=== PATIENT | female | born 1985 | race Caucasian/White ===

== ENCOUNTER 2017-06-30 20:41 | Emergency (ER) | payer SELFPAY ==
[~2017-06-30] VITALS: Ht 167.6 cm; Wt 96.0 kg
[2017-06-30 20:46] VITALS: Ht 167.6 cm; Wt 96.0 kg
[2017-06-30] MEDS ORDERED: ARIP10TA13 PO (21:57)
[2017-06-30] MEDS ORDERED: BUSP10TA2 PO (21:59)
[2017-06-30] MEDS ORDERED: CYCL-319 PO (21:59)
[2017-06-30] MEDS ORDERED: MORP-58 PO (22:01)
[2017-06-30] MEDS ORDERED: MORP-72 PO (22:01)
== END 2017-06-30 21:07 | disposition left against medical advice (07) ==
LOC: E/R 20:41
DX: Z53.21 Procedure and treatment not carried out due to patient leaving prior to being seen by health care provider (principal)

== ENCOUNTER 2017-06-30 21:38 | Emergency (ER) | payer MEDICARE, OTHER ==
[~2017-06-30] VITALS: Ht 165.1 cm; Wt 68.5 kg
[2017-06-30] MEDS ORDERED: ARIP10TA13 PO (21:57)
[2017-06-30] MEDS ORDERED: CYCL-319 PO (21:59)
[2017-06-30] MEDS ORDERED: BUSP10TA2 PO (21:59)
[2017-06-30 22:01] VITALS: Ht 165.1 cm; Wt 68.5 kg
[2017-06-30] MEDS ORDERED: MORP-58 PO (22:01)
[2017-06-30] MEDS ORDERED: MORP-72 PO (22:01)
[2017-06-30 23:24] LABS: BASOPHIL # 0.1 10^3/ul (0.0-0.1); BASOPHILS % 0.7 % (0.0-2.0); EOSINOPHILS # 0.1 10^3/ul (0.0-0.5); EOSINOPHILS % 1.1 % (0.0-7.0); HEMATOCRIT 37.5 % (37.0-47.0); HEMOGLOBIN 11.8 g/dl (12.0-16.0); LYMPHOCYTES # 2.1 10^3/ul (0.8-2.9); LYMPHOCYTES % 28.9 % (15.0-51.0); MEAN CORPUSCULAR HEMOGLOBIN 24.3 pg (29.0-33.0); MEAN CORPUSCULAR HGB CONC 31.5 g/dl (32.0-37.0); MEAN CORPUSCULAR VOLUME 77.3 fl (82.0-101.0); MEAN PLATELET VOLUME 10.7 fl (7.4-10.4); MONOCYTE # 0.4 10^3/ul (0.3-0.9); MONOCYTES % 5.9 % (0.0-11.0); NEUTROPHIL # 4.5 10^3/ul (1.6-7.5); PLATELET COUNT 344 10^3/UL (140-415); RED BLOOD COUNT 4.85 10^6/ul (4.20-5.40); RED CELL DISTRIBUTION WIDTH 16.9 % (11.5-14.5); WHITE BLOOD COUNT 7.1 10^3/ul (4.8-10.8)
[2017-06-30] MEDS ORDERED: HALOPERIDOL 5 MG INJ IM ONE (23:30)
[2017-06-30 23:42] LABS: ADD UMIC NO; UR ASCORBIC ACID NEGATIVE (NEGATIVE); UR BILIRUBIN (Dip) NEGATIVE (NEGATIVE); UR BLOOD (Dip) NEGATIVE (NEGATIVE); UR CLARITY SLIGHTLY CLOUDY (CLEAR); UR COLOR YELLOW (YELLOW); UR GLUCOSE (Dip) NEGATIVE (NEGATIVE); UR KETONES (Dip) NEGATIVE (NEGATIVE); UR LEUKOCYTE ESTERASE (Dip) NEGATIVE Leu/ul (NEGATIVE); UR NITRITE (Dip) NEGATIVE (NEGATIVE); UR RBC 0 /HPF (0-5); UR SPECIFIC GRAVITY (Dip) 1.013 (1.003-1.030); UR SQUAMOUS EPITHELIAL CELL FEW /HPF (FEW); UR TOTAL PROTEIN (Dip) NEGATIVE (NEGATIVE); UR UROBILINOGEN (Dip) NEGATIVE (NEGATIVE)
[2017-07-01 00:20] LABS: BARBITURATES Negative (NEGATIVE); BENZODIAZEPINES Negative (NEGATIVE); CANNABINOIDS Negative (NEGATIVE); COCAINE Negative (NEGATIVE); OPIATES Positive (NEGATIVE)
[2017-07-01 00:28] LABS: ALANINE AMINOTRANSFERASE 28 IU/L (13-69); ALBUMIN 3.8 g/dl (3.3-4.9); ALBUMIN/GLOBULIN RATIO 1.05; ALKALINE PHOSPHATASE 94 IU/L (42-121); ANION GAP 17 (8-16); ASPARTATE AMINO TRANSFERASE 23 IU/L (15-46); BILIRUBIN,INDIRECT 0.1 mg/dl (0-1.1); BILIRUBIN,TOTAL 0.1 mg/dl (0.2-1.3); BLOOD UREA NITROGEN 6 mg/dl (7-20); CALCIUM 8.9 mg/dl (8.4-10.2); CARBON DIOXIDE 23 mmol/L (21-31); CHLORIDE 108 mmol/L (97-110); CREATININE 0.61 mg/dl (0.44-1.00); GLUCOSE 93 mg/dl (70-220); POTASSIUM 4.3 mmol/L (3.5-5.1); SODIUM 144 mmol/L (135-144); TOTAL PROTEIN 7.4 g/dl (6.1-8.1)
[2017-07-01 00:44] LABS: ACETAMINOPHEN < 10.0 ug/ml (10.0-30.0); ETHANOL < 10.0 mg/dl; SALICYLATE < 1.0 mg/dl (5.0-30.0)
[2017-07-01] MEDS ORDERED: OLANZAPINE 5 MG TAB PO ONE (02:30)
[2017-07-01] MEDS ORDERED: LORAZEPAM 2 MG INJ IV ONE ×3 (02:30→18:30)
--- NOTE | 2017-07-01 05:08 | ERD ---
ER Documentation Chief Complaint Date/Time DATE: 07/01/17 TIME: 04:56 Chief Complaint bib pd for psych evaluation, HPI 32-year-old female presents the ER because she is hearing voices that tell her to hit herself in the head. She has resisted the urge so far she states that she cannot sleep because of the voices. He does not want to hurt herself. She started hearing them a few days ago when she stopped taking her Abilify because she read on the Internet that Abilify causes you to hear voices. She denies any physical symptoms. She has had no fevers chills and has no current pain. She does request medication to stop the voices. ROS All systems reviewed and are negative except as per history of present illness. Medications Home Meds Reported Medications Morphine Sulfate* (Oramorph SR*) 15 Mg Tablet.sa, 15 MG PO Q12, TAB.SA 06/30/17 Morphine Sulfate* (Oramorph SR*) 30 Mg Tablet.sa, 30 MG PO Q6H, TAB.SA 06/30/17 Buspirone Hcl* (Buspirone Hcl*) 10 Mg Tab, 2 MG PO TID, TAB 06/30/17 Cyclobenzaprine Hcl* (Cyclobenzaprine Hcl*) 10 Mg Tablet, 10 MG PO BID Y for MUSCLE SPASMS, #60 TAB 06/30/17 Aripiprazole* (Abilify*) 10 Mg Tablet, 10 MG PO QAM, #30 TAB TAKE 1/2 TAB FOR 1 WEEK AND THEN TAKE 1 TAB EVERYMORNING THEREAFTER 06/30/17 Allergies Allergies: Coded Allergies: acetaminophen (Verified Allergy, Unknown, 06/30/17) PMhx/Soc History of Surgery: Yes (back surgery ) Anesthesia Reaction: Yes Hx Neurological Disorder: No Hx Respiratory Disorders: No Hx Cardiac Disorders: No Hx Psychiatric Problems: Yes Hx Miscellaneous Medical Probl: Yes Hx Alcohol Use: No Hx Substance Use: No Hx Tobacco Use: No Smoking Status: Never smoker Physical Exam Vitals Vital Signs Date Time Temp Pulse Resp B/P Pulse Ox O2 Delivery O2 Flow Rate FiO2 06/30/17 22:36 98.6 92 16 121/81 99 Room Air 06/30/17 22:01 98.6 88 16 126/82 99 Physical Exam Const: [] No distress Head: Atraumatic Eyes: Normal Conjunctiva, EOMI, P E RL ENT: Normal External Ears, Nose and Mouth. Neck: Full range of motion..~ No meningismus. Resp: Clear to auscultation bilaterally Cardio: Regular rate and rhythm, no murmurs Abd: Soft, non tender, non distended. Normal bowel sounds Skin: No petechiae or rashes Back: No midline or flank tenderness Ext: No cyanosis, or edema Neur: Awake and alert and oriented 3, cranial nerves II through XII intact, no cerebellar deficits. Psych: Anxious Result Diagram: 06/30/17 2255 06/30/17 2335 Results 24 hrs Laboratory Tests Test 06/30/17 22:55 06/30/17 23:35 White Blood Count 7.110^3/ul Red Blood Count 4.8510^6/ul Hemoglobin 11.8g/dl Hematocrit 37.5% Mean Corpuscular Volume 77.3fl Mean Corpuscular Hemoglobin 24.3pg Mean Corpuscular Hemoglobin Concent 31.5g/dl Red Cell Distribution Width 16.9% Platelet Count 15215^3/UL Mean Platelet Volume 10.7fl Neutrophils % 63.0% Lymphocytes % 28.9% Monocytes % 5.9% Eosinophils % 1.1% Basophils % 0.7% Nucleated Red Blood Cells % 0.0/100WBC Neutrophils # 4.510^3/ul Lymphocytes # 2.110^3/ul Monocytes # 0.410^3/ul Eosinophils # 0.110^3/ul Basophils # 0.110^3/ul Nucleated Red Blood Cells # 0.010^3/ul Urine Color YELLOW Urine Clarity SLIGHTLY CLOUDY Urine pH 5.0 Urine Specific [place] 1.013 Urine Ketones NEGATIVEmg/dL Urine Nitrite NEGATIVEmg/dL Urine Bilirubin NEGATIVEmg/dL Urine Urobilinogen NEGATIVEmg/dL Urine Leukocyte Esterase NEGATIVELeu/ul Urine Microscopic RBC 0/HPF Urine Microscopic WBC 0/HPF Urine Squamous Epithelial Cells FEW/HPF Urine Hemoglobin NEGATIVEmg/dL Urine Glucose NEGATIVEmg/dL Urine Total Protein NEGATIVEmg/dl Urine Opiates Screen Positive Urine Barbiturates Negative Urine Amphetamines Screen Negative Urine Benzodiazepines Screen Negative Urine Cocaine Screen Negative Urine Cannabinoids Negative Sodium Level 144mmol/L Potassium Level 4.3mmol/L Chloride Level 108mmol/L Carbon Dioxide Level 23mmol/L Anion Gap 17 Blood Urea Nitrogen 6mg/dl Creatinine 0.61mg/dl Glucose Level 93mg/dl Calcium Level 8.9mg/dl Total Bilirubin 0.1mg/dl Direct Bilirubin 0.00mg/dl Indirect Bilirubin 0.1mg/dl Aspartate Amino Transf (AST/SGOT) 23IU/L Alanine Aminotransferase (ALT/SGPT) 28IU/L Alkaline Phosphatase 94IU/L Total Protein 7.4g/dl Albumin 3.8g/dl Globulin 3.60g/dl Albumin/Globulin Ratio 1.05 Salicylates Level < 1.0mg/dl Acetaminophen Level < 10.0ug/ml Ethyl Alcohol Level < 10.0mg/dl Current Medications Medications (Trade) Dose Ordered Sig/Monse Route PRN Reason Start Time Stop Time Status Last Admin Dose Admin Haloperidol (Haldol) 5 mg ONCE ONCE IM 06/30/17 23:30 06/30/17 23:31 DC 07/01/17 00:08 Olanzapine (Zyprexa) 10 mg ONCE ONCE PO 07/01/17 02:30 07/01/17 02:31 DC 07/01/17 02:35 Lorazepam (Ativan) 1 mg ONCE ONCE IV 07/01/17 02:30 07/01/17 02:31 DC 07/01/17 02:30 Procedures/MDM Acute psychosis secondary to discontinue antipsychotic medications. Patient would benefit from admission for medication therapy. She is medically cleared in the sense that I see no medical condition that would preclude her from psychiatric admission currently. No signs of infection. Patient developed by tele-psychiatry and placed on a hold. I did give her 1 mg of Ativan, 5 mg of Haldol and a p.o. Zyprexa which she said did help with the voices. Departure Diagnosis: Primary Impression: Acute psychosis Condition: Stable MARÍA ELENA JOHNS DO Jul 01, 2017 05:06
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
[2017-07-01] MEDS ORDERED: morphine (ER) 15 MG TAB PO ONE ×2 (07:30→14:30)
[2017-07-01] MEDS ORDERED: ARIPIPRAZOLE 5 MG TAB PO STA (12:03)
[2017-07-01] MEDS ORDERED: HALOPERIDOL 5 MG TAB PO ONE (13:30)
--- NOTE | 2017-07-01 15:12 | RADRPT ---
PROCEDURE: CT Brain without contrast. CLINICAL INDICATION: Head trauma TECHNIQUE: A CT of the brain was performed on a multidetector CT scanner utilizing axial sections from the skull base through the vertex without contrast. Images were reviewed on a high-resolution AKT workstation. Exam CTDI = 42.93 mGy and the DLP = 720.23 mGy-cm. One or more of the following dose reduction techniques were used: Automated exposure control Adjustment of the mA and/or kV according to patient size. Use of iterative reconstruction technique. COMPARISON: None available FINDINGS: There is no evidence of intracranial hemorrhage, mass effect or midline shift. No abnormal intra-ax ial or extra-axial fluid collections are seen. The density of the brain is normal and the lacey/whit e matter differentiation is well preserved. The osseous structures are unremarkable. Paranasal sin uses are clear. IMPRESSION: 1. No intracranial hemorrhage, mass effect or midline shift. RPTAT: EE .Des Correia MD, MD Date Time Electronically viewed and signed by .Des Correia MD, on 07/01/2017 15:12 .O/
[2017-07-01] MEDS: LORAZEPAM 1 MG TAB PO ONE ×2 (15:30→15:34)
[2017-07-01] MEDS ORDERED: LORAZEPAM 2 MG INJ ONE (15:33)
[2017-07-02 00:45] VITALS: BP 120/86; PULSE 110; RESP 16; TEMP 98
== END 2017-07-02 00:45 ==
LOC: E/R 21:38
DX: F29 Unspecified psychosis not due to a substance or known physiological condition (principal)
CPT/HCPCS: 36415; 70450; 80053; 80306; 80307; 81001; 85025; 96372; 96374; 96376; 99285; J1630; J2060; 81003